=== PATIENT | male | born 1955 | race Hispanic/Latino ===

== ENCOUNTER 2024-05-16 18:50 | Inpatient (IN) | payer OTHER ==
[~2024-05-16 18:50] MED LIST: Iopamidol-370 76% 500 ML MDV (1 ML CHARGE) ONE
[2024-05-16 20:23] LABS: #Basophils 0.03 10x3/uL (0.0-0.2); #Eosinphils Less than 0.03 10x3/uL (0.0-0.7); %Basophils 0.2 % (0.0-1.0); %Lymphocytes 4.6 % (21.0-51.0); %Monocytes 6.7 % (0.0-10.0); %Neutrophils 88.2 % (42.0-75.0); Hematocrit 43.1 % (42.0-52.0); Hemoglobin 14.1 g/dL (14.0-18.0); Mean Corpuscular HGB CONC 32.7 g/dL (32.0-36.0); Mean Corpuscular Hemoglobin 31.2 pg (27.0-31.0); Mean Corpuscular Volume 95.4 fL (78.0-98.0); Mean Platelet Volume 9.3 fL (7.4-10.4); Platelet Count 317 10x3/uL (130-400); RBC Distribution Width 13.6 % (11.5-14.5); Red Blood Cell (RBC) Count 4.52 mill/uL (4.70-6.10)
[2024-05-16 20:46] LABS: ALT (SGPT) 39 U/L (8-55); AST (SGOT) 29 U/L (5-34); Albumin 3.7 g/dL (3.4-4.8); Alkaline Phosphatase 73 U/L (40-110); Anion Gap 17 mmol/L (10-20); BUN (Urea Nitrogen) 16 mg/dL (8.4-25.7); Bilirubin, Total 0.5 mg/dL (0.2-1.2); Calc. Creatinine Clearance 0 mL/min (70-130); Calcium 9.6 mg/dL (7.8-10.44); Carbon Dioxide 25 mmol/L (23-31); Chloride 103 mmol/L (98-107); Estimated GFR 104; Globulin 3.6 g/dL (2.4-3.5); Glucose 132 mg/dL (80-115); Lipase 11 U/L (8-78); Potassium 4.6 mmol/L (3.5-5.1); Protein, Total 7.3 g/dL (5.8-8.1); Sodium 140 mmol/L (136-145)
[2024-05-16] MEDS ORDERED: Ketorolac Tromethamine 30 MG (1 mL) VIAL ONE (23:40)
[2024-05-16 23:51] LABS: Bilirubin Negative (Negative); Blood, Urine Trace (Negative); CAUTI Indications for Culture Pelvic or flank pain; Clarity Turbid (Clear); Glucose, Urine (Dipstick) Normal (Negative); Ketone, Urine Negative (Negative); Leukocyte 500 Leu/uL (Negative); Nitrite Negative (Negative); Protein, Urine (Dipstick) 20 mg/dL (Neg-Trace); Specific Gravity, Urine 1.026 (1.002-1.036); Squamous Epithelial 0-3 HPF (0-3); Triple Phosphate Crystal 4+ HPF (None Seen); Urobilinogen Normal mg/dL (Less than 2); WBC/HPF Greater than 50 HPF (0-3)
[2024-05-17 00:04] LABS: Bacteria/HPF 1+ HPF (None Seen)
[2024-05-17 00:05] LABS: Urine Culture Reflex Yes Yes
[2024-05-17] MEDS ORDERED: cefTRIAXone (ROCEPHIN) 2 GM VIAL ONE (00:54)
[2024-05-17] MEDS ORDERED: Sodium Chloride 0.9% 100 ML ONE (00:55)
[2024-05-17] MEDS ORDERED: Acetaminophen 325 MG TAB PO PRN ×2 (01:45→03:21)
[2024-05-17] MEDS ORDERED: Ondansetron PF 4 MG/2 ML Vial IVP PRN ×2 (01:45→03:21)
[2024-05-17] MEDS ORDERED: Ondansetron ODT 4 MG TAB SL PRN (01:45)
[2024-05-17 03:05] VITALS: BMI 25.1
[2024-05-17] MEDS ORDERED: Insulin Lispro 100 UNIT/ML 10 ML VIAL SC PRN (03:21)
[2024-05-17] MEDS ORDERED: Dextrose 5% in Water 1,000 ML IV PRN (03:21)
[2024-05-17] MEDS ORDERED: Ondansetron ODT 4 MG TAB PO PRN (03:21)
[2024-05-17] MEDS ORDERED: Glucagon 1 MG/ML KIT IM PRN (03:21)
[2024-05-17] MEDS ORDERED: Dextrose 50% Abboject 50 ML SYRINGE SLOW IVP PRN (03:21)
[2024-05-17] MEDS ORDERED: Morphine 2 MG/ML VIAL SLOW IVP PRN (03:25)
[2024-05-17] MEDS: Sodium Chloride 0.9% 1,000 ML IV SCH ×2 (04:16→20:21)
[2024-05-17] MEDS ORDERED: Ketorolac Tromethamine 30 MG (1 mL) VIAL IVP PRN (05:30)
[2024-05-17 07:42] LABS: #Basophils 0.05 10x3/uL (0.0-0.2); #Eosinphils Less than 0.03 10x3/uL (0.0-0.7); %Basophils 0.3 % (0.0-1.0); %Lymphocytes 6.6 % (21.0-51.0); %Monocytes 11.2 % (0.0-10.0); %Neutrophils 81.1 % (42.0-75.0); Hematocrit 37.4 % (42.0-52.0); Hemoglobin 12.4 g/dL (14.0-18.0); Mean Corpuscular HGB CONC 33.2 g/dL (32.0-36.0); Mean Corpuscular Hemoglobin 31.3 pg (27.0-31.0); Mean Corpuscular Volume 94.4 fL (78.0-98.0); Mean Platelet Volume 9.7 fL (7.4-10.4); Platelet Count 274 10x3/uL (130-400); RBC Distribution Width 13.9 % (11.5-14.5); Red Blood Cell (RBC) Count 3.96 mill/uL (4.70-6.10)
[2024-05-17] MEDS ORDERED: LevoFLOXacin 500 mg/D5W 500 MG in Premix 1 BAG IVPB SCH (07:45)
[2024-05-17] MEDS: Lactated Ringer's 500 ML IV SCH (08:18)
[2024-05-17 08:25] LABS: Bacteria/HPF None Seen HPF (None Seen); Bilirubin Negative (Negative); Blood, Urine 2+ (Negative); Clarity Extra Turbid (Clear); Glucose, Urine (Dipstick) Normal (Negative); Ketone, Urine Negative (Negative); Leukocyte 500 Leu/uL (Negative); Nitrite Negative (Negative); Protein, Urine (Dipstick) 100 mg/dL (Neg-Trace); RBC/HPF Greater than 50 HPF (0-3); Squamous Epithelial 0-3 HPF (0-3); Urobilinogen Normal mg/dL (Less than 2); WBC/HPF Greater than 50 HPF (0-3)
[2024-05-17 08:46] LABS: Specific Gravity, Urine 1.047 (1.002-1.036)
[2024-05-17] MEDS ORDERED: Non-Formulary Item 1 EACH (Levothyroxine Sodium [Levothyroxine Sodium] 25 MCG Capsule) PO SCH (09:00)
[2024-05-17] MEDS ORDERED: Iopamidol 30 ML ONE (09:01)
[2024-05-17] MEDS ORDERED: LevoFLOXacin D5W 500 mg (100 mL) BAG ONE (09:38)
[2024-05-17] MEDS ORDERED: Midazolam HCl 2 mg/2 ml Vial ONE (10:36)
[2024-05-17] MEDS ORDERED: PROPOFOL 20 ML ONE (10:36)
[2024-05-17] MEDS ORDERED: Lidocaine 2% PF 5 ML VIAL ONE (10:36)
[2024-05-17] MEDS ORDERED: Rocuronium Bromide 10 MG/ML (10ML VIAL) ONE (10:36)
[2024-05-17] MEDS ORDERED: fentaNYL PF 100 MCG/2 ML SYRINGE ONE (10:36)
[2024-05-17] MEDS: Atorvastatin Calcium 40 MG TAB PO SCH (10:39)
[2024-05-17] MEDS: Venlafaxine 75 MG TAB PO SCH (10:39)
[2024-05-17] MEDS ORDERED: Ondansetron PF 4 MG/2 ML Vial ONE (11:01)
[2024-05-17] MEDS ORDERED: Dexamethasone 4 mg/ml Vial ONE (11:01)
[2024-05-17] MEDS ORDERED: SUGAMMADEX SODIUM 200 MG/2 ML VIAL ONE (11:02)
[2024-05-17] MEDS ORDERED: PHENYLEPHRINE-NS 100 MCG/ML 10 ML SYRINGE ONE (11:06)
[2024-05-17] MEDS ORDERED: HYDROcodone/Acetaminophen 5/325 mg Tablet PO PRN ×2 (11:37)
[2024-05-17] MEDS ORDERED: Oxybutynin 5 MG TAB PO PRN (11:37)
[2024-05-17] MEDS: Phenazopyridine HCl 100 MG TAB PO SCH (15:22)
[2024-05-17] MEDS: Docusate 100 MG CAP PO SCH (20:22)
[2024-05-18] MEDS: cefTRIAXone\\ROCEPHIN 2 GM in Sodium Chloride 0.9% 100 ML IVPB SCH (00:05)
[2024-05-18 05:34] LABS: #Basophils 0.03 10x3/uL (0.0-0.2); #Eosinphils Less than 0.03 10x3/uL (0.0-0.7); %Basophils 0.2 % (0.0-1.0); %Lymphocytes 5.1 % (21.0-51.0); %Monocytes 8.4 % (0.0-10.0); %Neutrophils 85.8 % (42.0-75.0); Hematocrit 39.7 % (42.0-52.0); Hemoglobin 12.8 g/dL (14.0-18.0); Mean Corpuscular HGB CONC 32.2 g/dL (32.0-36.0); Mean Corpuscular Hemoglobin 31.2 pg (27.0-31.0); Mean Corpuscular Volume 96.8 fL (78.0-98.0); Mean Platelet Volume 9.7 fL (7.4-10.4); Platelet Count 260 10x3/uL (130-400)
[2024-05-18 05:36] LABS: Anion Gap 12 mmol/L (10-20); BUN (Urea Nitrogen) 14 mg/dL (8.4-25.7); Calc. Creatinine Clearance 124 mL/min (70-130); Calcium 8.4 mg/dL (7.8-10.44); Carbon Dioxide 23 mmol/L (23-31); Chloride 107 mmol/L (98-107); Estimated GFR 106; Glucose 120 mg/dL (80-115); Potassium 3.8 mmol/L (3.5-5.1); Sodium 138 mmol/L (136-145)
[2024-05-18] MEDS: Levothyroxine Sodium 25 MCG TAB PO SCH (06:06)
[2024-05-18] MEDS: Polyethylene Glycol 3350 17 GM Packet PO SCH (08:55)
[2024-05-18] MEDS: Tamsulosin HCl 0.4 MG CAP PO SCH (08:56)
[2024-05-18] MEDS: Insulin Lispro 100 UNIT/ML 10 ML VIAL SC PRN (11:35)
[2024-05-18] MEDS ORDERED: Ciprofloxacin 500 MG TAB PO SCH (20:00)
[2024-05-18] MEDS: Acetaminophen 500 MG TAB PO PRN (23:08)
[2024-05-19 05:30] LABS: #Basophils 0.04 10x3/uL (0.0-0.2); %Basophils 0.4 % (0.0-1.0); %Eosinophils 0.3 % (0.0-10.0); %Monocytes 11.7 % (0.0-10.0); %Neutrophils 73.3 % (42.0-75.0); Hematocrit 38.5 % (42.0-52.0); Hemoglobin 12.8 g/dL (14.0-18.0); Mean Corpuscular HGB CONC 33.2 g/dL (32.0-36.0); Mean Corpuscular Hemoglobin 30.9 pg (27.0-31.0); Mean Platelet Volume 9.8 fL (7.4-10.4); Platelet Count 238 10x3/uL (130-400); RBC Distribution Width 13.8 % (11.5-14.5); Red Blood Cell (RBC) Count 4.14 mill/uL (4.70-6.10)
[2024-05-19 06:54] LABS: Anion Gap 11 mmol/L (10-20); BUN (Urea Nitrogen) 11 mg/dL (8.4-25.7); Calc. Creatinine Clearance 150 mL/min (70-130); Calcium 8.3 mg/dL (7.8-10.44); Carbon Dioxide 26 mmol/L (23-31); Chloride 104 mmol/L (98-107); Estimated GFR 112; Glucose 132 mg/dL (80-115); Potassium 3.8 mmol/L (3.5-5.1); Sodium 137 mmol/L (136-145)
[2024-05-19 12:23] VITALS: BP 133/71; TEMP 99
[2024-05-19] MEDS ORDERED: Ciprofloxacin 500 MG TAB PO SCH (20:00)
== END 2024-05-19 15:06 | DRG 659 ==
LOC: ERS 18:50 → EEVIPCON 18:50 → SJJU 05-17 01:32
PROVIDERS: ADMIT Student in an Organized Health Care Education/Training Program; ATTEND Internal Medicine
PROC: 0T768DZ Dilation of Right Ureter with Intraluminal Device, Via Natural or Artificial Opening Endoscopic (ICD-10-PCS; principal; 2024-05-17)
PROC: BT1DZZZ Fluoroscopy of Right Kidney, Ureter and Bladder (ICD-10-PCS; 2024-05-17)
PROC: 0T9B80Z Drainage of Bladder with Drainage Device, Via Natural or Artificial Opening Endoscopic (ICD-10-PCS; 2024-05-17)
DX: N13.6 Pyonephrosis (principal); A41.9 Sepsis, unspecified organism; E11.9 Type 2 diabetes mellitus without complications; E03.9 Hypothyroidism, unspecified; E78.5 Hyperlipidemia, unspecified; N32.89 Other specified disorders of bladder; G89.29 Other chronic pain; M54.9 Dorsalgia, unspecified; N40.0 Benign prostatic hyperplasia without lower urinary tract symptoms; Z88.5 Allergy status to narcotic agent; Z79.899 Other long term (current) drug therapy; Z79.4 Long term (current) use of insulin
CPT/HCPCS: 36415; 36416; 74177; 74420; 80048; 80053; 81001; 83690; 85025; 87077; 87086; 87186; 96374; 96375; A4333; C1769; C2617; J0696; J1100; J1885; J1956; J2001; J2250; J2405; J2704; J3490; J7050; J7120; Q9967